=== PATIENT | female | born 1980 | race African-American/Black ===

== ENCOUNTER 2019-07-26 11:14 | Emergency (ER) | payer SELFPAY ==
[~2019-07-26 11:14] MED LIST: CEPH-264 PO; CIPR500T94 PO; FLUT1DIS5 IH; IBUP200T44 PO; LISI1TAB20 PO
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
[2019-07-26 12:29] VITALS: BP 147/73
[2019-07-26] MEDS ORDERED: HYDROcodone/APAP 5/325MG 1 TAB TABLET PO ONE (12:30)
[2019-07-26] MEDS ORDERED: LISI1TAB19 PO (12:55)
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
== END 2019-07-26 13:27 | disposition home or self-care (01) ==
LOC: EEVIPCON 11:14 → ER 11:14
DX: S20.211A Contusion of right front wall of thorax, initial encounter (principal); H11.32 Conjunctival hemorrhage, left eye; J44.9 Chronic obstructive pulmonary disease, unspecified; I10 Essential (primary) hypertension; F17.210 Nicotine dependence, cigarettes, uncomplicated; Z88.0 Allergy status to penicillin; Z88.6 Allergy status to analgesic agent; Y04.0XXA Assault by unarmed brawl or fight, initial encounter; Y93.89 Activity, other specified; Y92.89 Other specified places as the place of occurrence of the external cause; Y99.8 Other external cause status
CPT/HCPCS: 70450; 70486; 71101; 99284

== ENCOUNTER 2019-09-11 19:08 | Inpatient (IN) | payer SELFPAY ==
[~2019-09-11] VITALS: Ht 160 cm; Wt 78.0 kg
[~2019-09-11 19:08] MED LIST changes: +LISI1TAB19 PO; +LISINOPRIL 20 MG TABLET PO ONE; +hydroCHLOROthiazide 25 MG TABLET PO ONE
--- NOTE | 2019-09-11 19:29 | ED.ADGEN ---
Past History Past Medical History: COPD, Hypertension, Other Additional Past Medical Histor: ULCERATIVE COLITIS Past Surgical History: , Tonsillectomy, Other Additional Past Surgical Histo: LEFT ANKLE Smoking: Cigarettes, Less than 1pk/day Alcohol Use: Occasionally Drug Use: None Adult General Chief Complaint Chief Complaint ".. I got a nose bleed.. it just because of my BP... I ve been off all my BP meds for maybe a month now.. it been running 200"s/100's.. .. I know I should be taking the meds... " HPI HPI Patient is a 39 year old female who presents with above hx and complaints of elevated hypertension and epistaxis. She denies any history coagulopathy. Has had a recent upper respiratory infection which she feels is viral. Patient has not been compliant with her blood pressure meds of daily lisinopril 40 , HCTZ, 25 and clonidine 0.1 mg 3 times a day. Patient denies any trauma. Has been blowing her nose more recently. Patient has had long-standing hypertension that is at times difficult to control. No history immunosuppression. Patient does smoke. Patient does get nosebleeds in the fall clear when heating units make the air dry. Review of Systems Review of Systems Constitutional: Denies fever or chills [] Eyes: Denies change in visual acuity, redness, or eye pain [] HENT: Complains of nasal congestion and epistaxis Respiratory: Denies cough or shortness of breath [] Cardiovascular: No additional information not addressed in HPI []complaints of hypertension GI: Denies abdominal pain, nausea, vomiting, bloody stools or diarrhea [] : Denies dysuria or hematuria [] Musculoskeletal: Denies back pain or joint pain [] Integument: Denies rash or skin lesions [] Neurologic: Denies headache, focal weakness or sensory changes [] Endocrine: Denies polyuria or polydipsia [] All other systems were reviewed and found to be within normal limits, except as documented in this note. Family History Family History Hypertension Current Medications Current Medications Current Medications Medications (Trade) Dose Ordered Sig/Yogi Start Time Stop Time Status Last Admin Dose Admin Bacitracin (Bacitracin Topical Pkt) 6 pkt 1X ONCE 09/11/19 20:15 09/11/19 20:31 DC 09/11/19 20:41 6 PKT Clonidine HCl (Catapres Tts-1) 1 patch WEEKLY 09/18/19 09:00 UNV Clonidine HCl (Catapres) 0.1 mg 1X ONCE 09/11/19 21:45 09/11/19 21:46 UNV Hydrochlorothiazide (Hydrodiuril) 25 mg 1X ONCE 09/11/19 20:15 09/11/19 20:31 DC 09/11/19 20:41 25 MG Lactated Ringer's 1,000 ml @ 100 mls/hr Q10H 09/11/19 21:42 09/12/19 07:41 UNV Lidocaine/ Epinephrine (Xylocaine 2%-Epi 1:100,000) 20 ml 1X ONCE 09/11/19 20:15 09/11/19 20:32 DC 09/11/19 20:15 20 ML Lisinopril (Prinivil) 40 mg 1X ONCE 09/11/19 09:00 09/11/19 20:32 DC 09/11/19 20:57 40 MG Phenylephrine HCl (Lio-Synephrine 1% Nasal) 2 drop 1X ONCE 09/11/19 20:15 09/11/19 20:32 DC 09/11/19 20:41 2 DROP See nursing for home meds Allergies Allergies Allergies Coded Allergies Type Severity Reaction Last Updated Verified Penicillins Allergy Intermediate 07/26/19 Yes tramadol Allergy Intermediate 07/26/19 Yes Physical Exam Physical Exam Constitutional: Moderate acute distress, non-toxic appearance. [] HENT: Normocephalic, atraumatic, bilateral external ears normal, oropharynx moist, no oral exudates, nose swollen turbinates, rhinorrhea, and some mild bleeding from [place] area bilaterally] Eyes: PERRLA, EOMI, conjunctiva normal, no discharge. [] Neck: Normal range of motion, no tenderness, supple, no stridor. [] Cardiovascular:Heart rate regular rhythm, no murmur. PMI to the left Lungs & Thorax: Bilateral breath sounds equal apex with scattered wheezes on auscultation [] Abdomen: Bowel sounds normal, soft, no tenderness, no masses, no pulsatile masses. [] Skin: Warm, dry, no erythema, no rash. [] Back: No tenderness, no CVA tenderness. [] Extremities: No tenderness, no cyanosis, no clubbing, ROM intact, no edema. [] Neurologic: Alert and oriented X 3, normal motor function, normal sensory function, no focal deficits noted. [] Psychologic: Affect anxious, judgement normal, mood normal. [] Current Patient Data Vital Signs Vital Signs Date Time Temp Pulse Resp B/P (MAP) Pulse Ox O2 Delivery O2 Flow Rate FiO2 09/11/19 21:39 94 18 198/125 (149) 99 Room Air 09/11/19 19:28 98.4 EKG EKG My interpretation EKG shows a sinus rhythm at 73 bpm. Does have some bimodal P- wave's and LVH. No findings acute STEMI of contralateral changes.[] Radiology/Procedures Radiology/Procedures [][address] [address] IMAGING REPORT Signed PATIENT: ELISHA MASTERSON ACCOUNT: [id number] : 1980 LOCATION: ER AGE: 39 SEX: F EXAM STATUS: REG ER ORD. PHYSICIAN: MARILYNN MCKEON MD REASON: Nosebleed, hypertension PROCEDURE: CHEST PA & LATERAL Chest, PA and Lateral: Technique: PA and lateral views of the chest were obtained. History: Hypertension, nosebleed. Comparison: 07/26/2019. Findings: Mild cardiomegaly. Patchy airspace opacities identified in the bilateral lungs likely atelectasis or infiltrates. IMPRESSION: Patchy airspace opacities identified in the bilateral lungs likely atelectasis or infiltrates. Electronically signed by: Delon Nguyen MD (09/11/2019 10:49 PM) [facility] DICTATED AND SIGNED BY: DELON NGUYEN MD DATE: 09/11/19 2249 CC: MARILYNN MCKEON MD; PCP,NO ~ Course & Med Decision Making Course & Med Decision Making Pertinent Labs and Imaging studies reviewed. (See chart for details). Patient adamant she does not want nasal packing. Does request a renewal of her hypertensive meds. Currently refusing labs at this time. 1915 hrs. 0- Epistaxis has stabilized with Lidocaine, Antibiotic Ointment and use Afrin spray. Pt. still has accelerated HTN 190/120. Pt agrees to labs. Will admit for accelerated HTN. to Dr. Blas, and cardiology consult. [] Final Impression Final Impression 1. Epistaxis[] 2. Accelerated hypertension 3. Tobacco Use 4. Anemia hemoglobin 10.7 5. Mild hypokalemia 3.5 6 BMP 440 Dragon Disclaimer Dragon Disclaimer This electronic medical record was generated, in whole or in part, using a voice recognition dictation system. Dragon Disclaimer This chart was dictated in whole or in part using Voice Recognition software in a busy, high-work load, and often noisy Emergency Department environment. It may contain unintended and wholly unrecognized errors or omissions. MARILYNN MCKEON MD Sep 11, 2019 19:29
[2019-09-11] MEDS ORDERED: PHENYLEPHRINE 1% NASAL DROP 30ML BOTTLE. NS ONE (20:15)
[2019-09-11] MEDS ORDERED: hydroCHLOROthiazide 25 MG TABLET PO ONE (20:15)
[2019-09-11] MEDS ORDERED: LIDOCAINE 2%/EPI 1:100,000 20 ML VIAL. IJ ONE (20:15)
[2019-09-11] MEDS ORDERED: cloNIDine HCL 0.1 MG TABLET PO ONE ×3 (20:15→21:45)
[2019-09-11] MEDS ORDERED: BACITRACIN ZINC TOPICAL OINT PACKET. TP ONE (20:15)
[2019-09-11] MEDS ORDERED: cloNIDine TTS-1 1 PATCH PATCH TD SCH ×2 (20:30→22:00)
[2019-09-11] MEDS ORDERED: IV RINGERS SOLUTION,LACTATED 1,000 ML IV SCH (21:42)
[2019-09-11 22:03] LABS: BASO % 1 % (0-3); EOS % 0 % (0-3); HEMOGLOBIN 10.7 g/dL (12.0-15.5); LYMPH # 1.4 x10^3/uL (1.0-4.8); LYMPH % 23 % (24-48); MEAN CORPUSCULAR HEMOGLOBIN 30 pg (25-35); MEAN CORPUSCULAR HGB CONC 32 g/dL (31-37); MEAN CORPUSCULAR VOLUME 95 fL (79-100); MONO # 0.7 x10^3/uL (0.0-1.1); MONO % 11 % (0-9); NEUT # 3.9 x10^3uL (1.8-7.7); NEUT % 65 % (31-73); PLATELET COUNT 193 x10^3/uL (140-400); RED BLOOD COUNT 3.57 x10^6/uL (3.50-5.40); RED CELL DISTRIBUTION WIDTH 18.7 % (11.5-14.5)
[2019-09-11 22:25] LABS: ALBUMIN 3.5 g/dL (3.4-5.0); CREATININE 0.7 mg/dL (0.6-1.0); DIRECT BILIRUBIN 0.2 mg/dL (0.0-0.2); GFR 112.1; MAGNESIUM 1.6 mg/dL (1.8-2.4); POTASSIUM 3.3 mmol/L (3.5-5.1); TOTAL BILIRUBIN 0.5 mg/dL (0.2-1.0); TOTAL PROTEIN 7.6 g/dL (6.4-8.2)
[2019-09-11] MEDS ORDERED: ACETAMINOPHEN 325 MG TABLET PO PRN (22:30)
[2019-09-11] MEDS ORDERED: NICOTINE 21MG PATCH. TD ONE (22:30)
[2019-09-11] MEDS ORDERED: LABETALOL 20 MG/4 ML DISP.SYRIN. IVP ONE ×2 (22:30)
[2019-09-11] MEDS ORDERED: LABETALOL 200 MG in 0.9 % SODIUM CHLORIDE 150ML 160 ML IV ONE ×2 (22:30→23:00)
[2019-09-11] MEDS ORDERED: cloNIDine TTS-2 1 PATCH PATCH TD ONE ×2 (22:30→23:45)
[2019-09-11] MEDS ORDERED: ONDANSETRON PF 4 MG/2 ML VIAL. IV PRN (22:30)
--- NOTE | 2019-09-11 22:52 | RAD ---
Chest, PA and Lateral: Technique: PA and lateral views of the chest were obtained. History: Hypertension, nosebleed. Comparison: 07/26/2019. Findings: Mild cardiomegaly. Patchy airspace opacities identified in the bilateral lungs likely atelectasis or infiltrates. IMPRESSION: Patchy airspace opacities identified in the bilateral lungs likely atelectasis or infiltrates. Electronically signed by: Delon Nguyen MD (09/11/2019 10:49 PM) [facility] [place]
[2019-09-11 23:54] VITALS: BP 117/85
[2019-09-12] VITALS (14 sets, daily range): BP systolic 121–147; BP diastolic 73–96
--- NOTE | 2019-09-12 01:29 | NUR ---
Admit to ICU from ED via EMS [facility] 09/11/19 [id number]. Patient A/O x 3 on arrival. Transferred self from [facility] to bed independently. Admit for Accelerated HTN. BP 117/85 with HR 91 on arrival to unit. BP meds given in ED. Patient admits to not taking BP meds for 1 month. Orientated to unit and call light. Reviewed POC to include BP med administration. Patient verbalized understanding. Resting in bed with call light at hand.
[2019-09-12] MEDS ORDERED: hydroCHLOROthiazide 25 MG TABLET PO SCH ×2 (06:00→09:00)
[2019-09-12 07:15] LABS: BASO % 1 % (0-3); EOS % 1 % (0-3); HEMOGLOBIN 10.1 g/dL (12.0-15.5); LYMPH # 1.1 x10^3/uL (1.0-4.8); LYMPH % 23 % (24-48); MEAN CORPUSCULAR HEMOGLOBIN 31 pg (25-35); MEAN CORPUSCULAR HGB CONC 33 g/dL (31-37); MEAN CORPUSCULAR VOLUME 94 fL (79-100); MONO # 0.6 x10^3/uL (0.0-1.1); MONO % 12 % (0-9); NEUT # 3.1 x10^3uL (1.8-7.7); NEUT % 64 % (31-73); PLATELET COUNT 169 x10^3/uL (140-400); RED BLOOD COUNT 3.29 x10^6/uL (3.50-5.40); RED CELL DISTRIBUTION WIDTH 18.3 % (11.5-14.5); WHITE BLOOD COUNT 4.9 x10^3/uL (4.0-11.0)
[2019-09-12 07:23] LABS: CALCIUM 8.4 mg/dL (8.5-10.1); CREATININE 0.8 mg/dL (0.6-1.0); GFR 96.1; POTASSIUM 3.5 mmol/L (3.5-5.1)
[2019-09-12] MEDS ORDERED: MAGNESIUM SULFATE 2GM 50 ML IV ONE (08:00)
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
[2019-09-12] MEDS ORDERED: LISINOPRIL 5 MG TABLET. PO ONE (09:00)
[2019-09-12] MEDS ORDERED: FLU VAX QS 2019-20 (36MOS+)/PF 0.5 ML SYRINGE. VAX IM ONE (09:00)
[2019-09-12] MEDS ORDERED: LISINOPRIL 20 MG TABLET PO SCH (09:00)
[2019-09-12] MEDS ORDERED: cloNIDine HCL 0.1 MG TABLET PO PRN (10:00)
[2019-09-12] MEDS ORDERED: amLODIPine BESYLATE 10 MG TABLET PO SCH (10:15)
--- NOTE | 2019-09-12 15:37 | NUR ---
NSG NOTE; DISCHARGE VERBAL AND WRITTEN DISCHARGE INSTRUCTIONS GIVEN TO PT WITH VERBAL UNDERSTANDING RX CALLED TO [facility] PER PT'S REQUEST DISCHARGED TO HOME AT 1530 VIA AMB [facility]OMP BY SELF
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
[2019-09-12 21:15] LABS: THYROID STIM HORMONE (TSH) 2.367 uIU/mL (0.358-3.740)
--- NOTE | 2019-09-13 02:28 | EKG ---
[address] [address] Test Date: 2019-09-11 Test Time: 22:20:05 Pat Name: ELISHA MASTERSON Department: Room: Gender: F Contact Lens Inspector: VANESSA : 1980 Requested By: MARILYNN MCKEON Order Number: [id number] Reading MD: Measurements Intervals [place] Rate: 73 P: 61 FL: 190 QRS: 26 QRSD: 78 T: 39 QT: 418 QTc: 464 Interpretive Statements SINUS RHYTHM LEFT ATRIAL ABNORMALITY AMPLITUDE CRITERIA FOR LVH ABNORMAL ECG RI6.01 No previous ECG available for comparison
[2019-09-18] MEDS ORDERED: cloNIDine TTS-1 1 PATCH PATCH TD SCH (09:00)
== END 2019-09-12 15:30 | disposition home or self-care (01) | DRG 305 ==
LOC: ER 19:08 → ICU 21:30 → ER 22:56
PROVIDERS: ADMIT Internal Medicine; ATTEND Internal Medicine
DX: I16.0 Hypertensive urgency (principal); E83.42 Hypomagnesemia; E87.6 Hypokalemia; F17.210 Nicotine dependence, cigarettes, uncomplicated; J44.9 Chronic obstructive pulmonary disease, unspecified; R04.0 Epistaxis; Z82.49 Family history of ischemic heart disease and other diseases of the circulatory system; I10 Essential (primary) hypertension; Z91.19 Patient's noncompliance with other medical treatment and regimen; Z88.0 Allergy status to penicillin; Z88.8 Allergy status to other drugs, medicaments and biological substances
CPT/HCPCS: 36415; 71046; 80048; 80061; 80076; 82550; 83735; 83880; 84443; 84484; 84702; 85025; 85610; 85730; 90471; 90686; 93005; 99406; G0238; J3475; J7120; 99285-25